=== PATIENT | male | born 1985 ===

== ENCOUNTER → 2022-04-21 | Day surgery (SDC) | payer OTHER ==
[~2022-04-21] VITALS: Ht 180.3 cm; Wt 74.8 kg
[~2022-04-21] MED LIST: CEFDINIR300 MG PO; PROAIR HFA8.5 GM INH; SUBOXONE 8 MG-1 EACH PO
[2022-04-21 11:57] LABS: AMPHETAMINES NEGATIVE (NEGATIVE); BARBITURATES NEGATIVE (NEGATIVE); ECSTASY (MDMA) NEGATIVE (NEGATIVE); MARIJUANA (THC) POSITIVE (NEGATIVE); METHADONE NEGATIVE (NEGATIVE); OPIATES NEGATIVE (NEGATIVE); OXYCODONE NEGATIVE (NEGATIVE)
[2022-04-21 12:09] LABS: BASOPHIL 0.5 % (0-2); EOSINOPHIL 0.7 % (0-5); HCT 41.2 % (42.0-52.0); HGB 13.5 g/dl (13.2-18.0); MCH 31.6 pg (25.0-31.0); MCHC 32.8 g/dL (32.0-36.0); MCV 96.5 fL (78.0-100.0); MONOCYTE 6.1 % (0-12); MPV 10.4 fL (6.0-9.5); NEUTROPHIL 64.3 % (41-80); NRBC 0; PLT 163 K/uL (150-400); RBC 4.27 M/uL (4.70-6.00); RDW 12.4 % (11.5-14.0); WBC 5.6 K/uL (4.0-10.5)
[2022-04-21 12:26] LABS: ALBUMIN 4.2 g/dL (3.4-5.0); BILIRUBIN - TOTAL 0.7 mg/dL (0.2-1.0); BUN/CREAT RATIO (CALC) 20.7 RATIO; CREATININE 0.87 mg/dL (0.67-1.17); GLOBULIN (CALCULATION) 3.3 g/dL; TOTAL PROTEIN 7.5 g/dL (6.4-8.2)
== END | disposition home or self-care (01) ==
LOC: FAS 11:15
PROVIDERS: Oral & Maxillofacial Surgery
DX: K02.9 Dental caries, unspecified (principal); K04.7 Periapical abscess without sinus; J45.909 Unspecified asthma, uncomplicated; K21.9 Gastro-esophageal reflux disease without esophagitis; F17.200 Nicotine dependence, unspecified, uncomplicated; F43.10 Post-traumatic stress disorder, unspecified
CPT/HCPCS: D7210 ×4; 36415; 80053; 80305; 85025; J1100; J1885; J2250; J2405; J2704; J7120